=== PATIENT | male | born 1955 | race Caucasian/White ===

== ENCOUNTER 2021-03-03 08:57 | Day surgery (SDC) | payer MEDICARE, BC ==
[~2021-03-03 08:57] MED LIST: Lactated Ringers 1,000 ML IV SCH
[2021-03-03] MEDS ORDERED: fentaNYL 100 MCG/2 ML SDV ONE (10:43)
[2021-03-03] MEDS ORDERED: Propofol 200 MG/20 ML SDV ONE (10:43)
[2021-03-03] MEDS ORDERED: Midazolam 1 MG/ML 2 ML SDV ONE (10:43)
--- NOTE | 2021-03-03 13:32 | OR ---
PREOPERATIVE DIAGNOSIS: History of colon polyps. POSTOPERATIVE DIAGNOSIS: Colon polyps. PROCEDURE PERFORMED: Total flexible colonoscopy with biopsies. ANESTHESIA: MAC anesthesia. COMPLICATIONS: None. BLOOD LOSS: Minimal. FINDINGS: 1. Cecal polyps x2, 4 mm, cold snare. 2. Sigmoid polyp, 3 mm, cold snare. Start time 11:28, cecum 11:31, stop 11:47. BOWEL PREP: Lillie class 3. INDICATION FOR PROCEDURE: Mr. You is a 65-year-old male whose last colonoscopy was 10 years ago. He has a history of polyps. He denies bloody or dark black stools. No family history of colon cancer. DETAILS OF PROCEDURE: After informed consent was obtained, the patient was brought to the procedure room, placed in left lateral decubitus position. MAC anesthesia was induced per anesthesia colleagues without incident. The colonoscope was introduced into the rectum and advanced all the way to the cecum. Appendiceal orifice and ileocecal valve were photographed. The colonoscope was then slowly withdrawn. No pathology was identified except for as mentioned in the above finding section. A retroflexed view was obtained. The colonoscope was removed. The patient was awoken from MAC anesthesia by Anesthesia colleagues without incident. PATHOLOGY: A) Colon, cecal polyp, polypectomy Tubular adenoma. Sessile serrated adenoma. B) Colon, sigmoid polyp, polypectomy Tubular adenoma. Recommend repeat screening colonoscopy in 3 years. RKM: 03/03/2021 11:53:13 MODL: 03/03/2021 12:23:27 /[id number] MTDD
--- NOTE | 2021-03-10 14:56 | LETTER ---
03/10/2021 Raman Monroe Danna [address] [place] [id number] RE: RAMAN CARL DANNA : 1955 Dear Mr. You: I am writing to inform you of the pathology report of your recent colonoscopy. You had 2 tubular adenomas and 1 sessile serrated adenoma. These polyps do not contain cancer, but they can become cancer, which is why we removed them. You will need a repeat screening colonoscopy in 3 years. Warmest regards,
== END 2021-03-03 12:38 | disposition home or self-care (01) ==
LOC: VM.SDS 08:57
PROVIDERS: ATTEND Student in an Organized Health Care Education/Training Program
DX: Z12.11 Encounter for screening for malignant neoplasm of colon (principal); D12.0 Benign neoplasm of cecum; D12.5 Benign neoplasm of sigmoid colon; R06.02 Shortness of breath; F41.9 Anxiety disorder, unspecified; Z86.010 Personal history of colon polyps
CPT/HCPCS: 00811; 88305; J2250; J2704; J3010; J7120

== ENCOUNTER 2024-06-11 10:29 | Day surgery (SDC) | payer BC, MEDICARE ==
[2024-06-11] MEDS: Lactated Ringers 1,000 ML IV SCH (10:48)
[2024-06-11] MEDS ORDERED: fentaNYL 100 MCG/2 ML SDV ONE (11:18)
[2024-06-11] MEDS ORDERED: Propofol 200 MG/20 ML SDV ONE ×2 (11:18→12:48)
== END 2024-06-11 13:57 | disposition home or self-care (01) ==
LOC: VM.SDS 10:29
PROVIDERS: ATTEND Family Medicine
DX: Z12.11 Encounter for screening for malignant neoplasm of colon (principal); D12.6 Benign neoplasm of colon, unspecified; K57.30 Diverticulosis of large intestine without perforation or abscess without bleeding; I10 Essential (primary) hypertension; C61 Malignant neoplasm of prostate; Z86.0100 Personal history of colon polyps, unspecified; Z79.899 Other long term (current) drug therapy; Z88.0 Allergy status to penicillin
CPT/HCPCS: 00811; 88305; J2704; J3010; J7120